=== PATIENT | male | born 1965 | race Two or more races ===

== ENCOUNTER 2022-03-27 11:34 | Emergency (ER) | payer OTHER | END 2022-03-27 13:05 | disposition home or self-care (01) | LOC: FB.ED 11:34 | DX: S61.212A Laceration without foreign body of right middle finger without damage to nail, initial encounter (principal); S61.214A Laceration without foreign body of right ring finger without damage to nail, initial encounter; I10 Essential (primary) hypertension; E11.9 Type 2 diabetes mellitus without complications; Z79.899 Other long term (current) drug therapy; Z79.84 Long term (current) use of oral hypoglycemic drugs; W26.8XXA Contact with other sharp object(s), not elsewhere classified, initial encounter | CPT/HCPCS: 12002; 99282 ==